=== PATIENT | male | born 1945 | race Caucasian/White ===

== ENCOUNTER → 2024-07-06 09:24 | Outpatient (REF) | payer MEDICARE, OTHER, SELFPAY | LOC: DHVS 09:24 | PROVIDERS: ATTENDING PHYSICIAN Podiatrist Foot & Ankle Surgery; FAMILY PHYSICIAN Internal Medicine; REFERRING PHYSICIAN Surgery Vascular Surgery | DX: L97.522 Non-pressure chronic ulcer of other part of left foot with fat layer exposed (principal); I70.91 Generalized atherosclerosis; T81.31XA Disruption of external operation (surgical) wound, not elsewhere classified, initial encounter | CPT/HCPCS: 93922; 93925 ==

== ENCOUNTER → 2024-07-19 08:14 | Outpatient (REF) | payer MEDICARE, OTHER, SELFPAY ==
[2024-07-19 09:15] LABS: % Basophils 0.4 % (0-2); % Eosinophils 3.7 % (0-6); % Immature Granulocytes 0.4 % (0-0.5); % Lymphocytes 20.7 % (20.5-51.1); % Monocytes 7.7 % (1.7-9.3); % Neutrophils 67.1 % (42.2-75.2); Absolute Eosinophils 0.4 10^3/uL (0-0.7); Absolute Lymphocytes 2.2 10^3/uL (1.2-3.4); Absolute Monocytes 0.8 10^3/uL (0.1-0.6); Hematocrit 29.9 % (39.0-52.0); Hemoglobin 9.8 g/dL (13.0-18.0); Mean Corp Hgb Conc. 32.8 g/dL (33.0-37.0); Mean Corpuscular Hgb 26.2 pg (27.0-31.0); Mean Corpuscular Volume 79.9 fL (80.0-94.0); Mean Platelet Volume 11.1 fL (7.4-10.4); Nucleated Red Blood Cells % 0 % (-); Platelet Count 280 10^3/uL (130-400); Red Blood Cell Count 3.74 10^6/uL (4.70-6.10); White Blood Cell Count 10.5 10^3/uL (4.8-10.8)
[2024-07-19 09:27] LABS: INR 0.96; PT 13.3 Sec (11.4-14.6)
[2024-07-19 09:28] LABS: APTT 31.1 Sec (23.4-35.0)
[2024-07-19 11:07] LABS: Blood Urea Nitrogen 23 mg/dl (9-20); Calcium 9.6 mg/dl (8.4-10.2); Carbon Dioxide 25 mmol/L (22-30); Chloride 99 mmol/L (98-107); Glucose 130 mg/dl (70-99); Potassium 4.9 mmol/L (3.5-5.1); Sodium 137 mmol/L (135-145); eGFR > 60.00
== END ==
LOC: SDSPAT 08:14
PROVIDERS: ATTENDING PHYSICIAN Surgery Vascular Surgery; FAMILY PHYSICIAN Internal Medicine; OTHER PHYSICIAN Internal Medicine
DX: I77.9 Disorder of arteries and arterioles, unspecified (principal); E11.52 Type 2 diabetes mellitus with diabetic peripheral angiopathy with gangrene
CPT/HCPCS: 36415; 80048; 85025; 85610; 85730; 87070; 93005

== ENCOUNTER 2024-07-24 18:41 | Inpatient (IN) | payer MEDICARE, OTHER, SELFPAY ==
[2024-07-19 08:45] VITALS: BMI 23.5
--- NOTE | 2024-07-19 12:16 | PTCARENOTE ---
Michelle @ Dr. Queen office notifed of patient 07/19 hgb- 9.8
--- NOTE | 2024-07-19 15:14 | PTCARENOTE ---
Patients 07/19 hgb 9.8 and ECG abnormal- reviewed by Dr. Taylor- no additional interventions required
--- NOTE | 2024-07-20 15:47 | PTCARENOTE ---
Michelle in office made aware of Hgb 9.8.
[2024-07-24] VITALS (34 sets, daily range): BP systolic 107–189; BP diastolic 45–91
[2024-07-24 11:01] LABS: Glucose - Point of Care 128 mg/dl (70-99)
--- NOTE | 2024-07-24 11:58 | W.SUR.PREOP ---
Pre-Operative Surgical Note
-
I have examined this patient prior to the performance of the scheduled procedure.
The patient's condition is unchanged from the time of the current History and
Physical and the patient is able to undergo the scheduled procedure.
[2024-07-24 13:09] LABS: Glucose - Point of Care 120 mg/dl (70-99)
--- NOTE | 2024-07-24 13:41 | OR.RPT ---
Operative Report
Operative Report
Date of Operation: 07/24/2024
Pre Op Diagnosis: Limb threatening ischemia, left lower extremity with nonhealing left hallux wound
Post Op Diagnosis: Limb threatening ischemia, left lower extremity with nonhealing left hallux wound
Procedure:
1.) Intravascular lithotripsy to left superficial femoral artery/popliteal artery stenosis (6 mm x 80 mm E8 shockwave balloon)
2.) Balloon angioplasty and drug-eluting stent placement to left superficial femoral artery/popliteal artery (6 mm x 140 mm Zilver PTX drug-eluting stent)
3.) Diagnostic left lower extremity arteriogram
4.) Ultrasound-guided percutaneous ANTEGRADE access to the left common femoral artery
Surgeon: Kevon Early III, MD
Concrete Block Mason: Jonathan Rahman MD PGY1
Anesthesia: Sedation with local
Fluoroscopy:
19.9 min
33 mGy
8.40 gy.cm2
Complications: None
Estimated Blood Loss: Less than 20 cc
History and Indications for Procedure: 79-year-old male with nonhealing left hallux wound and abnormal preoperative lower extremity arterial studies suggesting the presence of arterial disease
Procedure in Detail: Dread Lockhart was correctly identified and placed supine on the operating table. After adequate induction of anesthesia the bilateral groins were prepped and draped in the usual sterile fashion. A timeout was performed with the
nursing and anesthesia staff confirming the patient's identity as well as the nature and laterality of the procedure.
The left common femoral artery was identified under ultrasound guidance. The artery was patent. The superior and inferior aspects of the femoral head were identified with radiographic guidance and marked at the skin level. The proposed puncture site
was infiltrated with local anesthesia. Under ultrasound guidance we accessed the left common femoral artery at the SFA origin in an antegrade direction with a micropuncture needle and upsized to a 5 Fr sheath over a Bentson wire. A diagnostic LEFT
lower extremity arteriogram was then performed which demonstrated the following:
LEFT LOWER EXTREMITY:
Common femoral artery: Patent
Profunda femoral artery: Patent
Superficial femoral artery: Diffusely calcified. Patent. Focal area of high-grade stenosis in the distal superficial femoral artery
Popliteal artery: Calcified. Patent. Areas of moderate stenosis above the knee. Mild focal stenosis behind the knee. Below knee segment patent with no significant stenosis identified
Anterior tibial artery: Short patent stent. Heavily calcified plaque proximally. Occluded distally. Distal reconstitution of the dorsalis pedis artery via collaterals.
Tibioperoneal trunk: Patent with mild to moderate stenosis
Peroneal artery: Patent to the ankle
Posterior tibial artery: Patent as the dominant tibial artery. Continues across the ankle to form the medial and lateral plantar branches which supplied the forefoot.
ENDOVASCULAR INTERVENTION: Systemic heparin was administered. Exchanged out for a 6 Fr 45 cm sheath over a Ovuline wire. The superficial femoral artery stenosis and popliteal artery disease was crossed with a Quickcross and Glidewire. The wire and
catheter were advanced into the below the knee popliteal artery and subtraction angio confirmed proper position in the true lumen. Exchanged out for a 0.014 wire. Due to the heavily calcified nature of the SFA/popliteal artery disease and in an
effort to modify the calcium to achieve maximum luminal gain with endovascular intervention I elected to proceed with intravascular lithotripsy. A 6 mm x 80 mm Shockwave balloon was placed across the SFA/popliteal artery stenosis under roadmap
guidance. Alternating rounds of lithotripsy pulse delivery at sub-nominal pressure and angioplasty at nominal pressure was performed across the stenosis. In between rounds of pulse delivery and angioplasty the balloon was deflated and repositioned
under roadmap guidance. All 400 pulses were delivered. Subsequent arteriogram demonstrated an improved result but residual stenosis remained along with a focal dissection flap. I then brought into position a 6 mm x 140 mm Zilver PTX stent and
positioned this across the residual stenosis in the distal SFA and above-knee popliteal artery under roadmap guidance. The stent was deployed and the delivery system removed over the wire. A 6 mm angioplasty balloon was used to profile the entire
length of the stent.
COMPLETION ARTERIOGRAM: Excellent technical result. Brisk flow through a widely patent superficial femoral artery and popliteal artery. Stent widely patent with no residual stenosis identified. Brisk tibial artery outflow through the posterior
tibial artery which crossed the ankle and formed the plantar branches in the foot. Improved flow to the forefoot and hallux identified compared to pretreatment. Again identified was a patent peroneal artery below the knee. Anterior tibial artery
occluded with reconstitution of the dorsalis pedis artery in the left foot.
Satisfied with this result we concluded the procedure. Protamine was administered. The sheath was secured in place with the plan to pull it in the recovery area.
The patient tolerated the procedure well and was taken to the recovery area in stable condition.
Attestation: I was present and responsible for the entire procedure.
Signed:
Kevon Early III, MD
Vascular Surgery
[facility]
[2024-07-24] MEDS: PLAVIX 75 MG PO (13:42)
[2024-07-24] MEDS: LOW STRENGTH ASPIRIN 81 MG PO (13:42)
--- NOTE | 2024-07-24 13:57 | W.PN.UPDATE ---
Update Note
Progress Note Update
Patient developed moderate size hematoma distal to puncture site in upper medial thigh, additional pressure held for 15 minutes with good resolution of hematoma and no evidence of active bleeding. ABD soft, non-tender, and non-distended. VSS.
Patient offers no complaints, will obtain urgent left groin US to rule out pseudo. Plan reviewed with pallet stone inserter doctor Kevon Early III.
[2024-07-24 15:49] LABS: Glucose - Point of Care 131 mg/dl (70-99)
--- NOTE | 2024-07-24 16:22 | W.PN.UPDATE ---
Update Note
Progress Note Update
Re-evaluated patient scant and vastly improved (following holding additional pressure) hematoma remains at medial left thigh, ulcerative compartment soft, preliminary US results demonstrate no pseudoaneurysm. No evidence of active bleeding. Vital
signs stable. Patient with no complaints and continues to deny abdominal pain, distention, or pain at puncture site or surrounding area. Does note mild tenderness with palpation over puncture site but otherwise offers no complaints.
[2024-07-24] MEDS: ZESTRIL 20 MG PO ×2 (16:57→17:25)
[2024-07-24] MEDS: TENORMIN 50 MG PO (16:57)
[2024-07-24] MEDS: CARDIZEM CD 180 MG PO (16:58)
[2024-07-24] MEDS: NSS 500 IV (17:00)
[2024-07-24] MEDS: NSS 1000 IV (17:24)
[2024-07-24] MEDS: TYLENOL 650 MG PO (17:55)
--- NOTE | 2024-07-24 18:29 | W.PN.UPDATE ---
Update Note
Progress Note Update
Family requesting admission overnight due to concerns over groin hematoma.
Groin is soft and minimally tender at access site
Excellent PT dopp signal left foot
They are very anxious about having him at home and I will therefore admit him overnight.
[id number]
--- NOTE | 2024-07-24 22:12 | PTCARENOTE ---
Pt. rec'd into room 2254 from labor economics professor AAOx3, VSS, NSR-SB on the monitor. Left groin dressing CDI, no hematoma assessed, some bruising present left medial thigh (soft). Bilateral pedal pulses palpable and present by Doppler; normal movement, some
baseline numbness (pt. insists this is normal for him; has history of neuropathy, no changes since pre-procedure). No complaints of pain. Wound care provided to left great toe (healing surgical wound). Oriented to room and plan of care, resting
quietly at this time.
[2024-07-24 22:21] LABS: Glucose - Point of Care 217 mg/dl (70-99)
[2024-07-25 00:29] VITALS: BP 126/50
[2024-07-25] MEDS: HEPARIN 5000 UNITS SC ×2 (00:29→08:18)
[2024-07-25 01:00] VITALS: BP 123/65
[2024-07-25 02:00] VITALS: BP 147/60
[2024-07-25 03:00] VITALS: BP 139/60
[2024-07-25 03:32] LABS: Hematocrit 27.7 % (39.0-52.0); Hemoglobin 9.1 g/dL (13.0-18.0); Mean Corp Hgb Conc. 32.9 g/dL (33.0-37.0); Mean Corpuscular Hgb 26.4 pg (27.0-31.0); Mean Corpuscular Volume 80.3 fL (80.0-94.0); Mean Platelet Volume 10.9 fL (7.4-10.4); Platelet Count 260 10^3/uL (130-400); Red Blood Cell Count 3.45 10^6/uL (4.70-6.10); Red Cell Dist. Width 14.9 % (11.5-14.5); White Blood Cell Count 8.2 10^3/uL (4.8-10.8)
[2024-07-25 03:58] LABS: Blood Urea Nitrogen 23 mg/dl (9-20); Calcium 9.5 mg/dl (8.4-10.2); Carbon Dioxide 27 mmol/L (22-30); Chloride 103 mmol/L (98-107); Estimated Creatinine Clearance 52 ml/min; Glucose 161 mg/dl (70-99); Potassium 4.4 mmol/L (3.5-5.1); Sodium 140 mmol/L (135-145); eGFR > 60.00
[2024-07-25 07:52] LABS: Glucose - Point of Care 182 mg/dl (70-99)
[2024-07-25 07:56] VITALS: BP 136/56
[2024-07-25] MEDS: ZESTRIL 40 MG PO (08:17)
[2024-07-25] MEDS: PLAVIX 75 MG PO (08:17)
[2024-07-25] MEDS: CARDIZEM CD 180 MG PO (08:17)
[2024-07-25] MEDS: ZYLOPRIM 300 MG PO (08:17)
[2024-07-25] MEDS: TENORMIN 50 MG PO (08:17)
[2024-07-25] MEDS: LOW STRENGTH ASPIRIN 81 MG PO (08:17)
--- NOTE | 2024-07-25 09:37 | W.PN.VS ---
Today's Communication / Plan
-
Discussed with Dr. Early
Assessment/Plan
-
POD 1 Intravascular lithotripsy to left superficial femoral artery/popliteal artery stenosis (6 mm x 80 mm E8 shockwave balloon)
Balloon angioplasty and drug-eluting stent placement to left superficial femoral artery/popliteal artery (6 mm x 140 mm Zilver PTX drug-eluting stent)
Plan:
- Okay for discharge from vascular standpoint, I will add follow-up to the chart
Subjective Data
-
Date of Service: July 25, 2024
Patient seen in bed this a.m. Patient offers no complaints at this time. No events overnight. Groin site clean, dry, intact
Objective Data
-
Vital Signs
Temp Pulse Resp BP Pulse Ox
98.0 F 65 18 136/56 98
07/25/24 08:00 07/25/24 09:00 07/25/24 08:00 07/25/24 07:56 07/25/24 08:00
Intake and Output
07/24/24 07/25/24 07/26/24
06:59 06:59 06:59
Intake Total 480 / 480
Output Total 450 / 450
Balance 30 / 30
Intake:
Oral fluids 480 / 480
Output:
Urine, Voided 450 / 450
Lab Results
07/25/24 03:09
07/25/24 03:09
Calcium 9.5 mg/dl (8.4-10.2) 07/25/24 03:09
Physical Exam
-
AAO x 3
No tachypnea on room air
No tachycardia
Abdomen soft
Groin site clean, dry, intact, soft, flat
Foot warm and pink
--- NOTE | 2024-07-25 10:48 | PTCARENOTE ---
Patient discharged. Instructions reviewed, patient verbalized understanding. IV and Telemetry removed. Patient escorted to main lobby in a wheelchair
--- NOTE | 2024-07-25 11:14 | CM ---
CM following for DC planning needs. Met w/ patient at bedside prior to DC to home.
Reviewed role of CM.
Pt. resides w/ spouse in a private home. He reports that he is functionally indep. prior to admission w/ ADLs, mobility without the use of any assisted device.
DC plan is for home, no needs.
[2024-07-27 05:46] LABS: Hepatitis C Antibody Negative (Negative)
== END 2024-07-25 11:01 | disposition home or self-care (01) | DRG 279 ==
LOC: IVU 18:41
PROVIDERS: ADMITTING PHYSICIAN Surgery Vascular Surgery; PRIMARYCARE PHYSICIAN Internal Medicine
PROC: B41G1ZZ Fluoroscopy of Left Lower Extremity Arteries using Low Osmolar Contrast (ICD-10-PCS; 2024-07-24)
PROC: 04FN3ZZ Fragmentation of Left Popliteal Artery, Percutaneous Approach (ICD-10-PCS; 2024-07-24)
PROC: 04FL3ZZ Fragmentation of Left Femoral Artery, Percutaneous Approach (ICD-10-PCS; 2024-07-24)
PROC: 047L34Z Dilation of Left Femoral Artery with Drug-eluting Intraluminal Device, Percutaneous Approach (ICD-10-PCS; 2024-07-24)
DX: I70.209 Unspecified atherosclerosis of native arteries of extremities, unspecified extremity (principal); E11.52 Type 2 diabetes mellitus with diabetic peripheral angiopathy with gangrene; S30.1XXA Contusion of abdominal wall, initial encounter; Y83.8 Other surgical procedures as the cause of abnormal reaction of the patient, or of later complication, without mention of misadventure at the time of the procedure
CPT/HCPCS: 75710; 80048; 82962; 85027; 86803; 87070; 93926; C1725; C1769; C1874; C1894; C9765; Q9967

== ENCOUNTER → 2024-08-10 07:30 | Outpatient (REF) | payer MEDICARE, OTHER, SELFPAY | LOC: RAD 07:30 | PROVIDERS: ATTENDING PHYSICIAN Surgery Vascular Surgery; FAMILY PHYSICIAN Internal Medicine | DX: I77.9 Disorder of arteries and arterioles, unspecified (principal) | CPT/HCPCS: 93922; 93925 ==

== ENCOUNTER → 2024-11-07 06:24 | Outpatient (REF) | payer MEDICARE, OTHER, SELFPAY | LOC: RAD 06:24 | PROVIDERS: ATTENDING PHYSICIAN Surgery Vascular Surgery; FAMILY PHYSICIAN Internal Medicine | DX: I77.9 Disorder of arteries and arterioles, unspecified (principal); M79.81 Nontraumatic hematoma of soft tissue | CPT/HCPCS: 93922; 93926 ==

== ENCOUNTER → 2024-11-14 13:08 | Outpatient (REF) | payer MEDICARE, OTHER, SELFPAY | LOC: RAD 13:08 | PROVIDERS: ATTENDING PHYSICIAN Surgery Vascular Surgery; FAMILY PHYSICIAN Internal Medicine | DX: I77.9 Disorder of arteries and arterioles, unspecified (principal) | CPT/HCPCS: 93925 ==

== ENCOUNTER → 2025-02-05 06:37 | Outpatient (REF) | payer MEDICARE, OTHER, SELFPAY | LOC: RAD 06:37 | PROVIDERS: ATTENDING PHYSICIAN Surgery Vascular Surgery; FAMILY PHYSICIAN Internal Medicine | DX: I70.245 Atherosclerosis of native arteries of left leg with ulceration of other part of foot (principal) | CPT/HCPCS: 93922; 93925 ==